=== PATIENT | male | born 1960 | race Caucasian/White ===

== ENCOUNTER 2021-01-25 09:20 | Inpatient (IN) ==
[2021-01-25] MEDS ORDERED: 0.9 % SODIUM CHLORIDE 1,000 ML IV ONE (09:45)
[2021-01-25] MEDS ORDERED: ONDANSETRON 4 MG/2 ML VIAL IV ONE (09:45)
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
[2021-01-25 10:50] LABS: Basophils # (Auto) 0.06 K/mcL (0.00-0.20); Basophils % (Auto) 0.9 % (0.0-2.0); Eosinophils # (Auto) 0.12 K/mcL (0.00-0.70); Eosinophils % (Auto) 1.9 % (0.0-7.0); Hemoglobin 15.7 g/dL (13.5-16.5); Lymphocytes # (Auto) 1.59 K/mcL (1.50-4.80); Lymphocytes % (Auto) 24.8 % (15.0-49.0); Mean Cell Volume 90.7 fL (80.0-100.0); Mean Corpuscular HGB Conc 33.4 g/dL (31.0-36.0); Mean Platelet Volume 10.3 fL (7.4-10.4); Monocytes # (Auto) 0.87 K/mcL (0.10-0.90); Monocytes % (Auto) 13.6 % (1.0-12.0); Neutrophils % (Auto) 58.8 % (38.0-78.0); Platelet Count 310 K/mcL (140-440); RBC 5.18 M/mcL (4.50-5.90); Red Cell Distribution Width 13.1 % (11.5-14.5); WBC 6.4 K/mcL (4.5-11.0)
[2021-01-25 11:13] LABS: ALT/SGPT 55 U/L (<40); AST/SGOT 46 U/L (<40); Albumin 3.5 gm/dL (3.2-5.2); Albumin/Globulin Ratio 1.1 (1.0-2.3); Alkaline Phosphatase 119 U/L (39-117); Bilirubin,Total 0.3 mg/dL (0.1-1.0); Blood Urea Nitrogen 24 mg/dL (6-20); Calcium 9.2 mg/dL (8.6-10.4); Carbon Dioxide 25 mmol/L (22-30); Chloride 98 mmol/L (96-108); Globulin 3.2 gm/dL (2.2-3.7); Glomerular Filtration Rate 60; Glucose 124 mg/dL (70-105)
[2021-01-25 11:41] LABS: Appearance,Urine Clear (Clear); Bilirubin,Urine Negative (Negative); Color,Urine Yellow; Culture Indicated,Urine yes; Glucose,Urine (UA) Negative (Negative); Ketones,Urine Negative (Negative); Leukocyte Esterase,Urine Trace /ug (Negative); Mucus,Urine MOD /hpf; Nitrate,Urine Negative (Negative); PH,Urine 5.5 (5.0-9.0); Specific Gravity,Urine 1.025 (1.000-1.035); Urine Blood Large ery/mcL (Negative); Urine RBC 167 /hpf (0-3); Urine Squamous Epithelial Cell 1 /hpf (0-4); Urine WBC 93 /hpf (0-4); Urobilinogen,Urine Normal
[2021-01-25] MEDS ORDERED: cefTRIAXone 2 GM in DEXTROSE 5% IN WATER 50 ML IV ONE (13:42)
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
[2021-01-25] MEDS ORDERED: ONDANSETRON 4 MG/2 ML VIAL IV PRN (14:32)
[2021-01-25] MEDS ORDERED: cefTRIAXone 1 GM in DEXTROSE 5% IN WATER 50 ML IV SCH (14:45)
--- NOTE | 2021-01-25 14:54 | Cat Scan Report ---
CLINICAL INFORMATION: History of obstructing stone disease. Recent right ureteral stent removal. Increasing right-sided abdominal pain COMPARISON: Noncontrast abdomen and pelvic CT over one week prior 01/17/2021 TECHNIQUE: 0.625 mm helical slices were obtained from the mid heart through the subtrochanteric regions. Following reconstruction, 2.5 mm sagittal, coronal and axial reformatted images were processed and reviewed at bone and soft tissue windows.The exam was performed using radiation dose optimization techniques including, but not limited to, automated exposure control, adjustment of the mA and/or kV according to patient size and use of iterative reconstruction technique. FINDINGS: Lung bases show a 3 mm benign subpulmonic nodule lateral basilar segment of the left lower lobe. There is minor atelectasis in the posterior right lower lobe. No effusion. The visualized heart is normal. Abdominal images show the gallbladder and bile ducts, noncontrasted liver, both adrenal glands, spleen, pancreas and aorta to be normal in size, configuration and attenuation without focal lesion. There is no free air or adenopathy. Since prior CT, the right ureteral stent has been removed. There are three stones in the right ureter: 2.5 mm in the mid ureter at approximately L4. Two adjacent stones, 5 mm and 2 mm, are seen in the distal ureter at S1. No evidence recurrent hydronephrosis; however, a large urinoma throughout the right retroperitoneum and the false and true pelvis has increased in size. On previous examination it was 9.5 x 10 cm. On today's exam is 12 x 11 cm. It is surmised that urine from the right kidney is being diverted throughout through the cold perforation in the right ureter. No evidence of hemorrhage and no supportive evidence of infection. Small amount of gas in the upper right retroperitoneum decreased modestly. This is likely residua from the prior procedure. Nonobstructing stones are seen in the calyces of both kidneys: 3.8 mm superior calyx right kidney, 1 mm inferior calyx right kidney, 2 mm mid calyx left kidney, 4 mm mid calyx left kidney. Pelvic images show urinary bladder, prostate seminal vesicles to be normal. Stomach, small and large bowel are grossly normal. Bone windows show no osseous abnormality. IMPRESSION: Interval removal of right ureteral stent. Since prior exam, three stones have migrated into the right ureter: 2.5 mm in the mid ureter at L4 and two adjacent stones, 5 mm and 2 mm , in the distal ureter at S1. There is no evidence of recurrent hydronephrosis. 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 This has increased in size from the prior CT. Small nonobstructing stones in both kidneys. Interpreted and Authenticated by: Arnaud Whitmore 01/25/21
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
[2021-01-25] MEDS: 0.9 % SODIUM CHLORIDE 10 ML SYRINGE IV SCH (20:06)
[2021-01-25] MEDS: SENNOSIDES 1 TABLET PO SCH (20:08)
[2021-01-25] MEDS: DOCUSATE SODIUM 100 MG CAPSULE PO SCH (20:08)
[2021-01-25] MEDS ORDERED: 0.9 % SODIUM CHLORIDE 10 ML SYRINGE IV SCH (22:00)
[2021-01-25] MEDS: NICOTINE 21 MG PATCH TOPICAL SCH (22:33)
[2021-01-26] MEDS: HYDROmorphone 0.5 MG/0.5 ML SYRINGE IV PRN ×3 (04:17→23:06)
[2021-01-26] MEDS: 0.9 % SODIUM CHLORIDE 10 ML SYRINGE IV SCH ×3 (04:17→20:23)
[2021-01-26] MEDS: NICOTINE 21 MG PATCH TOPICAL SCH (08:14)
[2021-01-26] MEDS: DOCUSATE SODIUM 100 MG CAPSULE PO SCH ×2 (08:14→20:15)
[2021-01-26] MEDS: cefTRIAXone 1 GM VIAL IV SCH (08:14)
[2021-01-26] MEDS ORDERED: ACETAMINOPHEN 325 MG TABLET PO PRN (10:38)
[2021-01-26 14:37] LABS: Basophils # (Auto) 0.05 K/mcL (0.00-0.20); Basophils % (Auto) 0.7 % (0.0-2.0); Eosinophils # (Auto) 0.27 K/mcL (0.00-0.70); Eosinophils % (Auto) 3.5 % (0.0-7.0); Hematocrit 42.9 % (41.0-55.0); Hemoglobin 14.2 g/dL (13.5-16.5); Lymphocytes # (Auto) 2.69 K/mcL (1.50-4.80); Mean Cell Volume 90.5 fL (80.0-100.0); Mean Corpuscular HGB Conc 33.1 g/dL (31.0-36.0); Mean Platelet Volume 10.1 fL (7.4-10.4); Monocytes # (Auto) 0.67 K/mcL (0.10-0.90); Monocytes % (Auto) 8.8 % (1.0-12.0); Neutrophils % (Auto) 51.7 % (38.0-78.0); Platelet Count 326 K/mcL (140-440); RBC 4.74 M/mcL (4.50-5.90); Red Cell Distribution Width 13.3 % (11.5-14.5); WBC 7.6 K/mcL (4.5-11.0)
[2021-01-26 14:56] LABS: ALT/SGPT 50 U/L (<40); AST/SGOT 37 U/L (<40); Albumin 3.1 gm/dL (3.2-5.2); Albumin/Globulin Ratio 1.1 (1.0-2.3); Alkaline Phosphatase 106 U/L (39-117); Bilirubin,Total 0.3 mg/dL (0.1-1.0); Blood Urea Nitrogen 19 mg/dL (6-20); Calcium 8.8 mg/dL (8.6-10.4); Carbon Dioxide 26 mmol/L (22-30); Chloride 101 mmol/L (96-108); Globulin 2.9 gm/dL (2.2-3.7); Glomerular Filtration Rate 66; Glucose 144 mg/dL (70-105)
--- NOTE | 2021-01-26 15:51 | General Surgery Progress Note ---
SUBJECTIVE Subjective Patient information: Note initiated : 01/26/21 at 3:38 pm Service Date, if different from initiated Date: [] Patient: Anshu Castillo 60 y/o M admitted on 01/25/21 for abdominal pain. Chief Complaint: [] Principal diagnosis: Patient is seen for follow-up of his ureteral leak with right-sided urinoma Interval history: This patient is being seen for a follow-up stone surgery with ureteral leak and urinoma in the mid right ureter. Patient's had no new fevers or chills but has persistent right-sided abdominal pain with rebound tenderness and recent labs mild increase of creatinine 1.3 but normalization of his white count and hemoglobin remains normal. Patient now reticent to have new stent placed and has been having stability with recent Thompson catheter placement assuming bladder outlet obstruction component now resolving. Patient has had some diarrhea and C. difficile culture pending as well as urine cultures pending. Patient has had dysuria but not significantly increased nausea and no emesis noted. Constitutional Vitals: Vital Signs Temp Pulse Resp BP Pulse Ox 98.0 F 53 L 20 133/80 95 01/26/21 12:00 01/26/21 12:00 01/26/21 12:00 01/26/21 12:00 01/26/21 12:00 Period Temp Pulse Resp BP Sys/Downing Pulse Ox Last 24 Hr 97.2 F-98.6 F 48-60 15-20 118-134/66-88 93-97 Intake and Output 01/26/21 01/26/21 01/26/21 05:59 13:59 21:59 Intake Total 300 1040 Output Total 900 Balance -600 1040 Weight 175 lb 8 oz Patient Weight 01/27/21 05:59 Weight 175 lb 8 oz Intake & Output: Intake & Output 01/26/21 01/26/21 01/26/21 05:59 13:59 21:59 Intake Total 300 1040 Output Total 900 Balance -600 1040 Weight 175 lb 8 oz Intake: Oral 300 1040 Output: Void Amount 900 Other: Meal Lunch Percent of Meal Consumed 100% Feeding Ability Independent Urine Appearance Clear Clear Uretheral (Thompson) Clear Clear Urine Color Bright Yellow Bright Yellow Uretheral (Thompson) Bright Yellow Bright Yellow Urine Odor Normal Stool Size Small Moderate Stool Color Green Stool Consistency Soft Liquid # Bowel Movements 1 GI/Abdominal GI/Abdominal exam: Present tenderness (Patient has right-sided lower quadrant rebound tenderness to percussion.) Additional findings Additional findings: Patient has no toxic findings presently beyond abdominal tenderness and Thompson catheter in place draining clear urine is noted. Mild CVA tenderness noted right side A/P Assessment and plan (1) Ureter injury: Status: Acute Comment: Thompson catheter Qualifiers: Encounter type: initial encounter Qualified Code(s): S37.10XA - Unspecified injury of ureter, initial encounter (2) Kidney stone on right side: Status: Acute Comment: Removing stent should resolve his pain and lower urinary tract symptoms. He is to follow-up here in about 1 week to discuss the stone analysis. (3) Paraureteric urinoma: Status: Acute Comment: Right-sided Narrative A/P Narrative: After discussion with patient will continue observation and try to manage some of his dysuria symptoms with Pyridium and Flomax Patient understands if not improved will require either urinoma drainage/right- sided nephrostomy tube placement or repeat ureteroscopy and potential stent replacement to the neck down the plan is as started stated dysuria.a second time cardiac catheter cystic Plan: Would initiate Flomax therapy along with Pyridium 3 times daily 200 mg for symptomatic relief We will recheck labs in the morning and continue hydration at present. Strong consideration for intervention with ureteroscopy tomorrow if not improved and potential reimaging pending clinical status Would keep n.p.o. overnight and await results from the C. difficile cultures which are pending as well as urine cultures pending, can address that then Time Spent With Patient Time: Total time spent is greater than 50% in coordination of care (as documented) at patient's floor/unit and/or counseling patient:
[2021-01-26] MEDS: PHENAZOPYRIDINE 200 MG TABLET PO PRN ×2 (16:34→23:09)
[2021-01-26 19:48] LABS: Lymphocytes % (Auto) 35.3 % (15.0-49.0)
[2021-01-26] MEDS: SENNOSIDES 1 TABLET PO SCH (20:15)
[2021-01-26] MEDS: TAMSULOSIN 0.4 MG CAPSULE PO SCH (20:23)
[2021-01-27] MEDS: 0.9 % SODIUM CHLORIDE 10 ML SYRINGE IV SCH ×3 (06:15→21:05)
[2021-01-27 07:13] LABS: Basophils # (Auto) 0.06 K/mcL (0.00-0.20); Basophils % (Auto) 0.6 % (0.0-2.0); Eosinophils # (Auto) 0.42 K/mcL (0.00-0.70); Eosinophils % (Auto) 4.2 % (0.0-7.0); Hematocrit 44.3 % (41.0-55.0); Hemoglobin 14.5 g/dL (13.5-16.5); Lymphocytes # (Auto) 3.61 K/mcL (1.50-4.80); Mean Cell Volume 91.2 fL (80.0-100.0); Mean Corpuscular HGB Conc 32.7 g/dL (31.0-36.0); Mean Platelet Volume 10.2 fL (7.4-10.4); Monocytes # (Auto) 0.64 K/mcL (0.10-0.90); Monocytes % (Auto) 6.4 % (1.0-12.0); Neutrophils % (Auto) 52.8 % (38.0-78.0); Platelet Count 350 K/mcL (140-440); RBC 4.86 M/mcL (4.50-5.90); Red Cell Distribution Width 13.2 % (11.5-14.5)
[2021-01-27 07:48] LABS: ALT/SGPT 46 U/L (<40); AST/SGOT 30 U/L (<40); Albumin 3.3 gm/dL (3.2-5.2); Albumin/Globulin Ratio 1.1 (1.0-2.3); Alkaline Phosphatase 108 U/L (39-117); Bilirubin,Total 0.4 mg/dL (0.1-1.0); Blood Urea Nitrogen 17 mg/dL (6-20); Carbon Dioxide 22 mmol/L (22-30); Chloride 104 mmol/L (96-108); Glomerular Filtration Rate 82; Glucose 104 mg/dL (70-105)
--- NOTE | 2021-01-27 07:59 | General Surgery Progress Note ---
SUBJECTIVE Subjective Patient information: Note initiated : 01/27/21 at 7:51 am Service Date, if different from initiated Date: [] Patient: Anshu Castillo 60 y/o M admitted on 01/25/21 for abdominal pain. Chief Complaint: [] Principal diagnosis: Patient is seen for follow-up of his ureteral leak with right-sided urinoma Interval history: Patient today with less nausea and urine remains clear. Patient's had no fever chills and results of labs reviewed which demonstrated stability with exception of mild increase in WBCs on CBC. Patient has been up in the halls without significant discomfort overnight and has remained n.p.o. Constitutional Vitals: Vital Signs Temp Pulse Resp BP Pulse Ox 97.8 F 87 18 117/71 91 01/27/21 07:08 01/27/21 07:08 01/27/21 07:08 01/27/21 07:08 01/27/21 07:08 Period Temp Pulse Resp BP Sys/Downing Pulse Ox Last 24 Hr 97.8 F-98.9 F 48-87 14-20 112-142/67-80 91-95 Intake and Output 01/26/21 01/27/21 01/27/21 21:59 05:59 13:59 Intake Total 960 400 Output Total 800 825 Balance 160 -425 Weight 170 lb 4.8 oz Intake & Output: Intake & Output 01/26/21 01/27/21 01/27/21 21:59 05:59 13:59 Intake Total 960 400 Output Total 800 825 Balance 160 -425 Weight 170 lb 4.8 oz Intake: Oral 960 400 Output: Urine Catheter Amount 800 825 Other: Meal Dinner Percent of Meal Consumed 100% Feeding Ability Independent Urine Appearance Sediment Clear Uretheral (Thompson) Clear Urine Color Dark Yellow [place] Blood Tinged Uretheral (Thompson) [place] Urine Odor Strong Additional findings Additional findings: Patient has had demonstration of no acute distress is alert oriented and cooperative. Patient has no fever chills and vital signs remained stable Back exam demonstrates minimal CVA tenderness and abdominal exam shows no rebound and significantly less tenderness to percussion in the right lower quadrant. Urine remains clear but concentrated. Thompson catheter remains in place with adequate drainage on HUNTER. A/P Narrative A/P Narrative: Assessment and plan: Improvement in status with likely better spontaneous drainage from suspected ureteral leak. Patient demonstrates clinical improvement and at this point will reinitiate fluid intake and hold on further imaging at this time. With patient's labs were repeated in the morning and plan on conservative approach is able Patient is agreeable and understands plan remaining reticent to surgical approach which would be appropriate Time Spent With Patient Time: Total time spent is greater than 50% in coordination of care (as documented) at patient's floor/unit and/or counseling patient:
[2021-01-27] MEDS: DOCUSATE SODIUM 100 MG CAPSULE PO SCH ×2 (09:16→21:06)
[2021-01-27] MEDS: PHENAZOPYRIDINE 200 MG TABLET PO SCH ×2 (09:16→14:38)
[2021-01-27] MEDS: NICOTINE 21 MG PATCH TOPICAL SCH (09:16)
[2021-01-27] MEDS: cefTRIAXone 1 GM VIAL IV SCH (09:45)
[2021-01-27] MEDS: HYDROmorphone 0.5 MG/0.5 ML SYRINGE IV PRN (14:45)
[2021-01-27] MEDS: TOLTERODINE 2 MG CAP.XL.24H PO SCH (16:44)
--- NOTE | 2021-01-27 16:47 | General Surgery Progress Note ---
SUBJECTIVE Subjective Patient information: Note initiated : 01/27/21 at 4:42 pm Service Date, if different from initiated Date: [] Patient: Anshu Castillo 60 y/o M admitted on 01/25/21 for abdominal pain. Chief Complaint: [] Principal diagnosis: Patient is seen for follow-up of his ureteral leak with right-sided urinoma Interval history: Some urine leakage and overall otherwise improved abd pains Constitutional Vitals: Vital Signs Temp Pulse Resp BP Pulse Ox 97.8 F 55 L 18 127/81 92 01/27/21 12:00 01/27/21 12:00 01/27/21 12:00 01/27/21 12:00 01/27/21 12:00 Period Temp Pulse Resp BP Sys/[place] Pulse Ox Last 24 Hr 97.8 F-98.9 F 50-87 14-18 112-142/67-81 91-93 Intake and Output 01/27/21 01/27/21 01/27/21 05:59 13:59 21:59 Intake Total 400 480 Output Total 825 Balance -425 480 Intake & Output: Intake & Output 01/27/21 01/27/21 01/27/21 05:59 13:59 21:59 Intake Total 400 480 Output Total 825 Balance -425 480 Intake: Oral 400 480 Output: Urine Catheter Amount 825 Other: Meal Lunch Percent of Meal Consumed 100% Feeding Ability Independent Urine Appearance Clear Clear Uretheral (Thompson) Clear Clear Urine Color [place] Uretheral (Thompson) [place] Urine Odor Normal Uretheral (Thompson) Normal Stool Size Moderate Stool Color Brown Stool Consistency Soft Soft Loose # Bowel Movements 1 1 Additional findings Additional findings: Abd softer and no CVA tenderness nontoxic and tolerating PO full liqiuds A/P Narrative A/P Narrative: doing well and will try alternative meds for bladder spasms plan increase diet tonight and perhaps discharge in am pending labs and clinical status Time Spent With Patient Time: Total time spent is greater than 50% in coordination of care (as documented) at patient's floor/unit and/or counseling patient:
[2021-01-27] MEDS: TAMSULOSIN 0.4 MG CAPSULE PO SCH (21:04)
[2021-01-27] MEDS: SENNOSIDES 1 TABLET PO SCH (21:06)
[2021-01-28 07:34] LABS: Basophils # (Auto) 0.06 K/mcL (0.00-0.20); Basophils % (Auto) 0.5 % (0.0-2.0); Eosinophils # (Auto) 0.44 K/mcL (0.00-0.70); Eosinophils % (Auto) 3.8 % (0.0-7.0); Hematocrit 44.4 % (41.0-55.0); Hemoglobin 14.5 g/dL (13.5-16.5); Lymphocytes # (Auto) 3.15 K/mcL (1.50-4.80); Lymphocytes % (Auto) 27.6 % (15.0-49.0); Mean Cell Volume 91.2 fL (80.0-100.0); Mean Corpuscular HGB Conc 32.7 g/dL (31.0-36.0); Mean Platelet Volume 10.2 fL (7.4-10.4); Monocytes # (Auto) 0.67 K/mcL (0.10-0.90); Monocytes % (Auto) 5.9 % (1.0-12.0); Neutrophils % (Auto) 62.2 % (38.0-78.0); Platelet Count 398 K/mcL (140-440); RBC 4.87 M/mcL (4.50-5.90); Red Cell Distribution Width 13.1 % (11.5-14.5); WBC 11.4 K/mcL (4.5-11.0)
--- NOTE | 2021-01-28 07:58 | General Surgery Progress Note ---
SUBJECTIVE Subjective Patient information: Note initiated : 01/28/21 at 7:50 am Service Date, if different from initiated Date: [] Patient: Anshu Castillo 60 y/o M admitted on 01/25/21 for abdominal pain. Chief Complaint: [] Principal diagnosis: Patient is seen for follow-up of his ureteral leak with right-sided urinoma Interval history: AFVSS still some abd pain but not wosened ambulating well and po OK bladder spasms improved Constitutional Vitals: Vital Signs Temp Pulse Resp BP Pulse Ox 98.3 F 53 L 22 117/70 94 01/28/21 04:21 01/28/21 04:21 01/28/21 04:21 01/28/21 04:21 01/28/21 04:21 Period Temp Pulse Resp BP Sys/Downing Pulse Ox Last 24 Hr 97.5 F-98.3 F 52-55 18-24 111-127/70-81 92-95 Intake and Output 01/27/21 01/28/21 01/28/21 21:59 05:59 13:59 Intake Total 1200 700 Output Total 800 850 Balance 400 -150 Weight 170 lb Intake & Output: Intake & Output 01/27/21 01/28/21 01/28/21 21:59 05:59 13:59 Intake Total 1200 700 Output Total 800 850 Balance 400 -150 Weight 170 lb Intake: Oral 1200 700 Output: Urine Catheter Amount 800 850 Other: Meal Dinner Percent of Meal Consumed 100% Feeding Ability Independent Urine Appearance Clear Uretheral ([place]) Clear Urine Color [place] Uretheral ([place]) [place] Stool Color Brown Black Stool Consistency Soft # Bowel Movements 1 Additional findings Additional findings: Nontoxic but still with discomfort noted abd tenderness in RLQ but short of rebound minimal CVA tenderness [place] clear yellow A/P Narrative A/P Narrative: A: PERSISTENT URINOMA P:With rising WBC and Chemistry pending would repeat CT to assess status and need to intervene with stenting to relieve in spite of reluctance for sane by patient. Will see for further eval after above Time Spent With Patient Time: Total time spent is greater than 50% in coordination of care (as documented) at patient's floor/unit and/or counseling patient:
[2021-01-28 08:01] LABS: ALT/SGPT 41 U/L (<40); AST/SGOT 25 U/L (<40); Albumin 3.1 gm/dL (3.2-5.2); Alkaline Phosphatase 110 U/L (39-117); Bilirubin,Total 0.3 mg/dL (0.1-1.0); Blood Urea Nitrogen 18 mg/dL (6-20); Calcium 9.1 mg/dL (8.6-10.4); Carbon Dioxide 25 mmol/L (22-30); Chloride 101 mmol/L (96-108); Glomerular Filtration Rate 60; Glucose 156 mg/dL (70-105)
--- NOTE | 2021-01-28 08:44 | Cat Scan Report ---
History: Abdominal pain, rising white blood cell count, urinoma around the right kidney following recent attempted ureteral stone extraction Technique: the patient was imaged without contrast from the diaphragm to the symphysis pubis. Sagittal and coronal reformats were created. The radiation exposure was limited using dose reduction technology. FINDINGS: There is discoid atelectasis in the posterior basal segments of both lower lobes, right greater than left. This has increased since prior CT done on 01/25/21. The liver and spleen are normal in size and homogeneous. The gallbladder and bile ducts appear normal. There is no apparent mass or inflammation the pancreas. The adrenals are normal and symmetric. Patient has a couple nonobstructing calyceal stones in both kidneys. Largest is located in the middle third of the left kidney and measures 3.5 mm. There is no hydronephrosis or abnormal fluid collection in the left kidney. There is mild fullness of the right renal pelvis. In the proximal and middle third of the right ureter there are two residual stones. The larger is in the middle one third and measures 4 mm. These were seen on the prior exams and have not moved. There is a large retroperitoneal fluid collection which extends from the lower medial aspect of the right kidney, tracking anterior to the right psoas and iliacus muscle to the right internal inguinal ring. It contains bubbles of air in the superior aspect. There were air bubbles on the prior exam, which have partially reabsorbed. The fluid collection measures 4.7 x 10.7 x 16 cm. It has increased in size since 01/25/21. At that time it measured 11 x 12 cm in greatest dimension. No ascites or free intraperitoneal air are present. The urinary bladder is partially decompressed by Thompson catheter. Bowel pattern is normal without evidence of ileus or obstruction. There is a row of anastomotic sutures around the cecum and ascending colon. Moderate amount stool is present in the right side of the colon. IMPRESSION: Enlarging fluid collection anterior to the right iliopsoas muscle. This is probably a urinoma. Superimposed infection may be present. Retained stones in the right ureter causing low-grade obstruction Interpreted and Authenticated by: Bishnu Gonzalez 01/28/21
[2021-01-28] MEDS: NICOTINE 21 MG PATCH TOPICAL SCH (09:11)
[2021-01-28] MEDS: DOCUSATE SODIUM 100 MG CAPSULE PO SCH ×2 (09:11→20:39)
[2021-01-28] MEDS: cefTRIAXone 1 GM VIAL IV SCH (09:11)
[2021-01-28] MEDS: TOLTERODINE 2 MG CAP.XL.24H PO SCH (09:12)
[2021-01-28] MEDS: 0.9 % SODIUM CHLORIDE 10 ML SYRINGE IV SCH ×3 (09:12→20:38)
[2021-01-28] MEDS ORDERED: ceFAZolin 1 GM VIAL IV ONE (13:01)
--- NOTE | 2021-01-28 13:14 | General Surgery Progress Note ---
SUBJECTIVE Subjective Patient information: Note initiated : 01/28/21 at 1:09 pm Service Date, if different from initiated Date: [] Patient: Anshu Castillo 60 y/o M admitted on 01/25/21 for abdominal pain. Chief Complaint: [] Principal diagnosis: Patient is seen for follow-up of his ureteral leak with right-sided urinoma Interval history: Patient has persistent pain and review of her CT scan shows expanded urinoma with likely ureteral obstruction secondary to more distal stone. Decision now has to further options readdressed with patient and he is agreeable to proceed with ureteroscopy as opposed to nephrostomy tube placement and/or open procedure. Tenderness Constitutional Vitals: Vital Signs Temp Pulse Resp BP Pulse Ox 98.3 F 55 L 22 123/72 92 01/28/21 08:00 01/28/21 08:00 01/28/21 08:00 01/28/21 08:00 01/28/21 08:00 Period Temp Pulse Resp BP Sys/Downing Pulse Ox Last 24 Hr 97.5 F-98.3 F 52-55 18-24 111-127/70-80 92-95 Intake and Output 01/27/21 01/28/21 01/28/21 21:59 05:59 13:59 Intake Total 0227 063 7361 Output Total 800 850 Balance 400 -150 1160 Weight 170 lb Intake & Output: Intake & Output 01/27/21 01/28/21 01/28/21 21:59 05:59 13:59 Intake Total 5235 055 5653 Output Total 800 850 Balance 400 -150 1160 Weight 170 lb Intake: Oral 2768 875 7372 Output: Urine Catheter Amount 800 850 Other: Meal Dinner Lunch Percent of Meal Consumed 100% 100% Feeding Ability Independent Independent Urine Appearance Clear Uretheral (Thompson) Clear Clear Urine Color [place] Uretheral (Thompson) [place] Stool Color Brown Black Stool Consistency Soft # Bowel Movements 1 Additional findings Additional findings: Patient still has abdominal tenderness and no distinct rebound but no improvement as well Still mild right CVA tenderness A/P Narrative A/P Narrative: Discussed options and at this point has patient has just had significant solid food for lunch will plan to proceed early tomorrow morning after n.p.o. status to reduce anesthesia risk as he has had problems previously with questionable aspiration with other procedure. Risks and benefits explained and patient understands need for stent placement and possibility if unsuccessful of nephrostomy tube placement and/or drainage or open procedure. Consent will be signed and we will proceed in tree wrapper tomorrow. Time Spent With Patient Time: Total time spent is greater than 50% in coordination of care (as documented) at patient's floor/unit and/or counseling patient:
[2021-01-28] MEDS ORDERED: ceFAZolin 2 GM in DEXTROSE 5% IN WATER 50 ML IV SCH (13:15)
[2021-01-28] MEDS: SENNOSIDES 1 TABLET PO SCH (20:38)
[2021-01-28] MEDS: TAMSULOSIN 0.4 MG CAPSULE PO SCH (20:38)
[2021-01-28] MEDS: HYDROmorphone 0.5 MG/0.5 ML SYRINGE IV PRN (20:55)
[2021-01-28] MEDS: PHENAZOPYRIDINE 200 MG TABLET PO PRN (20:55)
[2021-01-29] MEDS ORDERED: ceFAZolin 2 GM in DEXTROSE 5% IN WATER 50 ML IV SCH (06:00)
[2021-01-29] MEDS: 0.9 % SODIUM CHLORIDE 10 ML SYRINGE IV SCH ×2 (06:28→12:37)
[2021-01-29 07:10] LABS: Basophils # (Auto) 0.06 K/mcL (0.00-0.20); Basophils % (Auto) 0.6 % (0.0-2.0); Eosinophils % (Auto) 4.7 % (0.0-7.0); Hemoglobin 14.6 g/dL (13.5-16.5); Lymphocytes # (Auto) 3.31 K/mcL (1.50-4.80); Lymphocytes % (Auto) 30.8 % (15.0-49.0); Mean Cell Volume 90.5 fL (80.0-100.0); Mean Corpuscular HGB Conc 33.2 g/dL (31.0-36.0); Mean Platelet Volume 9.9 fL (7.4-10.4); Monocytes # (Auto) 0.64 K/mcL (0.10-0.90); Neutrophils % (Auto) 57.9 % (38.0-78.0); Platelet Count 450 K/mcL (140-440); RBC 4.86 M/mcL (4.50-5.90); WBC 10.8 K/mcL (4.5-11.0)
[2021-01-29 08:13] LABS: ALT/SGPT 33 U/L (<40); AST/SGOT 19 U/L (<40); Albumin 3.4 gm/dL (3.2-5.2); Albumin/Globulin Ratio 1.2 (1.0-2.3); Alkaline Phosphatase 102 U/L (39-117); Bilirubin,Total 0.6 mg/dL (0.1-1.0); Blood Urea Nitrogen 16 mg/dL (6-20); Calcium 9.4 mg/dL (8.6-10.4); Carbon Dioxide 27 mmol/L (22-30); Chloride 103 mmol/L (96-108); Globulin 2.9 gm/dL (2.2-3.7); Glomerular Filtration Rate 66; Glucose 105 mg/dL (70-105)
[2021-01-29] MEDS: TOLTERODINE 2 MG CAP.XL.24H PO SCH (08:42)
[2021-01-29] MEDS: DOCUSATE SODIUM 100 MG CAPSULE PO SCH (08:42)
[2021-01-29] MEDS: cefTRIAXone 1 GM VIAL IV SCH (08:42)
[2021-01-29] MEDS: NICOTINE 21 MG PATCH TOPICAL SCH (08:43)
[2021-01-29] MEDS ORDERED: IPRATROPIUM/ALBUTEROL 3 ML AMPUL.NEB NEB ONE ×2 (09:09→09:16)
[2021-01-29] MEDS ORDERED: LIDOCAINE HCL/PF 100 MG/5 ML SYRINGE IV ONE (09:25)
[2021-01-29] MEDS ORDERED: PROPOFOL 200 MG/20 ML VIAL IV ONE (09:25)
[2021-01-29] MEDS ORDERED: ONDANSETRON 4 MG/2 ML VIAL ONE (09:25)
[2021-01-29] MEDS ORDERED: MIDAZOLAM 5 MG/5 ML VIAL ONE (09:25)
[2021-01-29] MEDS ORDERED: GLYCOPYRROLATE 0.2 MG/ML VIAL IV ONE (09:25)
[2021-01-29] MEDS ORDERED: fentaNYL 100 MCG/2 ML VIAL IV ONE (09:25)
[2021-01-29] MEDS ORDERED: DEXAMETHASONE 10 MG/ML VIAL ONE (09:25)
[2021-01-29] MEDS ORDERED: KETAMINE 100 MG/ML ML ONE (09:25)
[2021-01-29] MEDS ORDERED: METOPROLOL TARTRATE 5 MG/5 ML VIAL IV PRN (09:51)
[2021-01-29] MEDS ORDERED: MEPERIDINE 25 MG/ML VIAL IV PRN (09:51)
[2021-01-29] MEDS ORDERED: ATROPINE SULFATE 0.4 MG/ML VIAL IV PRN (09:51)
[2021-01-29] MEDS ORDERED: ONDANSETRON 4 MG/2 ML VIAL IV PRN (09:51)
[2021-01-29] MEDS ORDERED: PROMETHAZINE 25 MG/ML VIAL IV PRN (09:51)
[2021-01-29] MEDS ORDERED: ePHEDrine 50 MG/ML AMPUL IV PRN (09:51)
[2021-01-29] MEDS ORDERED: IPRATROPIUM/ALBUTEROL 3 ML AMPUL.NEB NEB PRN (09:51)
[2021-01-29] MEDS ORDERED: diphenhydrAMINE 50 MG/ML VIAL IV PRN (09:51)
[2021-01-29] MEDS ORDERED: METHOCARBAMOL 1,000 MG/10 ML VIAL IV PRN (09:51)
[2021-01-29] MEDS ORDERED: fentaNYL 100 MCG/2 ML VIAL IV PRN (09:51)
[2021-01-29] MEDS ORDERED: NALOXONE HCL 0.4 MG/ML VIAL IV PRN (09:51)
[2021-01-29] MEDS ORDERED: FLUMAZENIL 0.1 MG/ML ML IV PRN (09:51)
[2021-01-29] MEDS ORDERED: LACTATED RINGERS 1,000 ML IV SCH (10:00)
[2021-01-29] MEDS ORDERED: IOVERSOL 20 ML VIAL IV ONE (10:04)
--- NOTE | 2021-01-29 10:33 | Operative Note ---
Operative Note Operative Note: Operation report Preop diagnosis: right urinoma with left ureteral leak status post prior stone surgery postop diagnosis: Same-no easily visualized ureteral fragment Operation performed: Cystoscopy retrograde pyelography with ureteral stent placement right side Surgeon: Dr. Luis Angel Johnson Anesthesia: BETH Leal Anesthesia type: General Drains 18 Portuguese Thompson catheter and 6 x 26 double-J stent ureteral right side Findings: Right ureteral disruption with significant ureteral leak mid ureter likely consistent with past stone surgery and bypassed with ureteral stenting. Description: Patient placed on the operating table and general anesthesia induced. Patient had prepped and draped in the dorsal 5 position and cystoscopy was carried out demonstrating some mild proximal enlargement and ureteral edema right side without other significant beyond mild trabeculation. Patient had right ureter cannulated with 035 zip wire and recent manipulation under fluoroscopic control wire was coiled in the right renal pelvis. Patient had a 5 Portuguese open-ended stent utilized for performing right retrograde pyelogram. Patient had the significant leak noted in the mid ureter with significant periureteral edema and urinoma present with no actual stone fragment visualized. At this point he decided with significant edema and disruption to focal ureteroscopy and place straight drain with 6 Portuguese double-J stent over the wire. Stent was placed with position confirmed fluoroscopically and cystoscopically an 18 Portuguese Thompson catheter was placed draining clear urine. Patient was returned to the recovery area stable patient tolerated procedure well.
[2021-01-29] MEDS: HYDROmorphone 0.5 MG/0.5 ML SYRINGE IV PRN (11:34)
[2021-01-29] MEDS: PHENAZOPYRIDINE 200 MG TABLET PO PRN (12:11)
--- NOTE | 2021-01-29 12:55 | XRay Report ---
HISTORY: FINDINGS: IMPRESSION: An 1.4 minutes of fluoroscopy time was used. Interpreted and Authenticated by: Bishnu Gonzalez 01/29/21
--- NOTE | 2021-01-29 14:02 | Discharge Summary ---
Discharge Provider Provider Patient information: Note initiated : 01/29/21 at 1:55 pm Service Date, if different from initiated Date: [] Patient: Anshu Castillo 60 y/o M admitted on 01/25/21 for abdominal pain. Chief Complaint: [] Date of admission: 01/25/21 15:50 Discharge date: 01/29/21 Primary care physician: PCP No Admitting clinician: Scott Melton Consults: 01/25/21 Consult to Physician [CONS] Stat Comment: Consulting Provider: Scott Melton Reason For Exam: Physician to Consult Consult to Physician [CONS] Stat Comment: Consulting Provider: Anshu Bill Reason For Exam: Physician to Consult Discharging clinician: Devon Johnson COURSE Hospital Course Hospital course: Patient was admitted for abdominal pain and found to have right ureteral disruption with urinoma on CT imaging. Patient had declined initial stent placement and conservative management attempted however patient had persistent pain and subsequently showed a large urinoma which required intervention surgically. Patient had a right attempted ureteroscopy and subsequently had inability to perform ureteroscopy visually and a retrograde pyelogram with stent placement was accomplished with Thompson catheter left in place. Discharge diagnosis: Right ureteral stone with right ureteral disruption and urinoma with stent Procedures: Right attempted ureteroscopy right retrograde pyelography and right ureteral stent placement 29 January 2021 Time Spent with Patient Time attestation: Total time spent providing and/or coordinating discharge services: Physical Examination Vital Signs Vital signs: Temp Pulse Resp BP Pulse Ox 98.2 F 67 15 118/69 95 01/29/21 10:39 01/29/21 10:39 01/29/21 10:39 01/29/21 10:39 01/29/21 10:39 Additional Findings Additional exam: Patient was nontoxic on discharge and eating well with less abdominal pain and less CVA tenderness. Patient had normal diaphragmatic excursion had regular cardiac rhythm. HEENT within normal limits Thompson catheter in place draining clear yellow urine Discharge Plan Patient/Caregiver Discharge Instructions Activity: resume usual activities as tolerated Diet: Regular Diet Activity Restrictions/Additional Instructions: Patient to continue with Thompson catheter with day and night bag usage. 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 is have the Flomax numbness which this so that Prescriptions: New sulfamethoxazole-trimethoprim [Bactrim DS] 800-160 mg tablet 1 tab PO BID Qty: 20 RF: 0 Continued tamsulosin [Flomax] 0.4 mg capsule 0.4 mg PO QDAY Qty: 14 RF: 0 oxycodone-acetaminophen [Endocet] 10-325 mg tablet 1 tab PO Q6H PRN (Reason: pain) Qty: 14 RF: 0 Discontinued ciprofloxacin HCl [Cipro] 500 mg tablet 500 mg PO BID Qty: 10 RF: 0 Follow Up Plan Follow up with: No,PCP [Primary Care Provider] - Patient Disposition: Home, Self-Care Prognosis: Good Discharge Orders: Discharge Order (Routine); Ordered 01/29/21 Ordered By: Devon Johnson Pending Pending Pending: Resuscitation Status Full Code Diet Regular Diet Start TueJan 29 1241 Acetaminophen (Acetaminophen 325 Mg Tablet) 650 mg PO Q4-6HP PRN; Protocol PRN Reason: Per Pain Protocol Last Admin: 01/29/21 04:42 Dose: 650 mg Documented by: ISIDORO Ceftriaxone Sodium (Ceftriaxone 1 Gm Vial) 1 gm IV Q24H [facility] Last Admin: 01/29/21 08:42 Dose: Not Given Documented by: Admin: 01/28/21 09:11 Dose: 1 gm Documented by: Admin: 01/27/21 09:45 Dose: 1 gm Documented by: Admin: 01/26/21 08:14 Dose: 1 gm Documented by: JERRY Docusate Sodium (Docusate Sodium 100 Mg Capsule) 100 mg PO BID [facility] Last Admin: 01/29/21 08:42 Dose: Not Given Documented by: Admin: 01/28/21 20:39 Dose: Not Given Documented by: Admin: 01/28/21 09:11 Dose: 100 mg Documented by: Admin: 01/27/21 21:06 Dose: Not Given Documented by: Admin: 01/27/21 09:16 Dose: Not Given Documented by: Admin: 01/26/21 20:15 Dose: Not Given Documented by: Admin: 01/26/21 08:14 Dose: Not Given Documented by: Admin: 01/25/21 20:08 Dose: Not Given Documented by: MSHULTS Hydromorphone HCl (Hydromorphone 0.5 Mg/0.5 Ml Syringe) 0.25 mg IV Q2HP PRN; Protocol PRN Reason: Per Pain Protocol Last Admin: 01/29/21 11:34 Dose: 0.25 mg Documented by: Admin: 01/28/21 20:55 Dose: 0.25 mg Documented by: Admin: 01/27/21 14:45 Dose: 0.25 mg Documented by: Admin: 01/26/21 23:06 Dose: 0.25 mg Documented by: Admin: 01/26/21 12:59 Dose: 0.25 mg Documented by: Admin: 01/26/21 04:17 Dose: 0.25 mg Documented by: CAROLYNE Cefazolin Sodium 2 gm/ (Dextrose) 50 mls @ 100 mls/hr IV PREOP HOLLY Stop: 01/29/21 17:00 Last Infusion: 01/29/21 09:30 Dose: 0 mls/hr Documented by: Admin: 01/29/21 09:19 Dose: 100 mls/hr Documented by: [email or web address] Nicotine (Nicotine 21 Mg Patch) 21 mg TOPICAL DAILY@1000 HOLLY Last Admin: 01/29/21 08:43 Dose: Not Given Documented by: Admin: 01/28/21 09:11 Dose: 21 mg Documented by: Admin: 01/27/21 09:16 Dose: 21 mg Documented by: Admin: 01/26/21 08:14 Dose: 21 mg Documented by: Admin: 01/25/21 22:33 Dose: 21 mg Documented by: CAROLYNE Phenazopyridine HCl (Phenazopyridine 200 Mg Tablet) 200 mg PO TIDP PRN PRN Reason: BLADDER SPASMS Last Admin: 01/29/21 12:11 Dose: 200 mg Documented by: Admin: 01/28/21 20:55 Dose: 200 mg Documented by: ISIDORO Senna (Sennosides 1 Tablet) 2 tab PO HS [facility] Last Admin: 01/28/21 20:38 Dose: Not Given Documented by: Admin: 01/27/21 21:06 Dose: Not Given Documented by: Admin: 01/26/21 20:15 Dose: Not Given Documented by: Admin: 01/25/21 20:08 Dose: Not Given Documented by: CAROLYNE Sodium Chloride (0.9 % Sodium Chloride 10 Ml Syringe) 10 ml IV Q8 [facility] Admin: 01/29/21 12:37 Dose: Not Given Documented by: Admin: 01/29/21 06:28 Dose: Not Given Documented by: Admin: 01/28/21 20:38 Dose: 10 ml Documented by: Admin: 01/28/21 17:57 Dose: 10 ml Documented by: Admin: 01/28/21 09:12 Dose: 10 ml Documented by: Admin: 01/27/21 21:05 Dose: 10 ml Documented by: Admin: 01/27/21 14:38 Dose: 10 ml Documented by: Admin: 01/27/21 06:15 Dose: 10 ml Documented by: Admin: 01/26/21 20:23 Dose: 10 ml Documented by: Admin: 01/26/21 12:59 Dose: 10 ml Documented by: Admin: 01/26/21 04:17 Dose: 10 ml Documented by: Admin: 01/25/21 20:06 Dose: 10 ml Documented by: CAROLYNE Tamsulosin HCl (Tamsulosin 0.4 Mg Capsule) 0.4 mg PO [facility] Last Admin: 01/28/21 20:38 Dose: 0.4 mg Documented by: Admin: 01/27/21 21:04 Dose: 0.4 mg Documented by: Admin: 01/26/21 20:23 Dose: 0.4 mg Documented by: SABRA Tolterodine Tartrate (Tolterodine 2 Mg Cap.Xl.24h) 4 mg PO DAILY [facility] Last Admin: 01/29/21 08:42 Dose: Not Given Documented by: Admin: 01/28/21 09:12 Dose: 4 mg Documented by: Admin: 01/27/21 16:44 Dose: 4 mg Documented by: JERRY Shift Summary 01/29/21 04:51 Shift Summary by Herminia Piper Pt had stent placement, then removal earlier this month, then had increased pain & was admitted for urinoma. Thompson was placed to see if it would heal on its own, but CT yesterday showed worsening so he will have surgery today for stent placement. Pt is A&O x4. Up ad adán in halls, uses personal cane. Thompson putting out large amounts of clear, pyridium orange urine. Had PRN pain meds once early in the shift. Hoping to go home later today after stent placement or tomorrow. Initialized on 01/29/21 04:51 - END OF NOTE
== END 2021-01-29 17:15 | disposition home or self-care (01) | DRG 661 ==
LOC: ED 09:20 → MEDSUR 15:50
PROVIDERS: ADMIT Urology; ATTEND Urology

== ENCOUNTER 2021-05-28 14:07 | Inpatient (IN) ==
[2021-05-28] MEDS ORDERED: ACETAMINOPHEN 325 MG TABLET PO ONE (14:27)
[2021-05-28] MEDS ORDERED: 0.9 % SODIUM CHLORIDE 1,000 ML IV ONE (14:27)
--- NOTE | 2021-05-28 14:50 | XRay Report ---
CLINICAL INFORMATION: fever COMPARISON: 12/29/2016 FINDINGS: Heart size, mediastinum and pulmonary vessels are normal. Lungs are clear. No effusions. IMPRESSION: Normal Interpreted and Authenticated by: Arnaud Whitmore 05/28/21
[2021-05-28 14:55] LABS: POC Blood Urea Nitrogen 22 mg/dL (6-20); POC CO2 18 mmol/L (22-30); POC Calcium, Ionized 1.08 mmEq/L (1.16-1.32); POC Chloride 100 mEq/L (96-108); POC Creatinine 1.3 mg/dL (0.6-1.2); POC Glucose, Random 195 mg/dL (70-105); POC Hematocrit 42 % (41-55); POC Potassium 3.5 mEql/L (3.3-5.1); POC Sodium 132 mEq/L (133-145)
[2021-05-28 15:27] LABS: Basophils # (Auto) 0.06 K/mcL (0.00-0.20); Basophils % (Auto) 0.2 % (0.0-2.0); Eosinophils # (Auto) 0 K/mcL (0.00-0.70); Eosinophils % (Auto) 0 % (0.0-7.0); Hematocrit 40.4 % (41.0-55.0); Lymphocytes # (Auto) 1.25 K/mcL (1.50-4.80); Lymphocytes % (Auto) 4.9 % (15.0-49.0); Mean Cell Volume 86.9 fL (80.0-100.0); Mean Corpuscular HGB Conc 34.7 g/dL (31.0-36.0); Mean Platelet Volume 10.5 fL (7.4-10.4); Monocytes # (Auto) 1.75 K/mcL (0.10-0.90); Monocytes % (Auto) 6.9 % (1.0-12.0); Platelet Count 225 K/mcL (140-440); RBC 4.65 M/mcL (4.50-5.90); Red Cell Distribution Width 14.1 % (11.5-14.5); WBC 25.5 K/mcL (4.5-11.0)
[2021-05-28] MEDS ORDERED: CEFEPIME 1 GM VIAL IV ONE (15:30)
[2021-05-28] MEDS ORDERED: VANCOMYCIN PER PHARMACY IV ONE ×2 (15:30→21:36)
[2021-05-28] MEDS ORDERED: VANCOMYCIN 1,500 MG in 0.9 % SODIUM CHLORIDE 500 ML IV ONE (15:45)
[2021-05-28 15:48] LABS: ALT/SGPT 12 U/L (<40); AST/SGOT 13 U/L (<40); Albumin 3.4 gm/dL (3.2-5.2); Albumin/Globulin Ratio 1.2 (1.0-2.3); Alkaline Phosphatase 74 U/L (39-117); Bilirubin,Total 1.3 mg/dL (0.1-1.0); Blood Urea Nitrogen 20 mg/dL (6-20); Calcium 9.1 mg/dL (8.6-10.4); Carbon Dioxide 19 mmol/L (22-30); Chloride 97 mmol/L (96-108); Globulin 2.9 gm/dL (2.2-3.7); Glomerular Filtration Rate 60; Glucose 187 mg/dL (70-105)
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
[2021-05-28 16:47] LABS: Appearance,Urine CLOUDY (Clear); Bacteria,Urine MOD /hpf (0); Bilirubin,Urine Negative (Negative); Color,Urine YELLOW; Culture Indicated,Urine yes; Glucose,Urine (UA) Negative (Negative); Ketones,Urine Negative (Negative); Leukocyte Esterase,Urine 500 /ug (Negative); Mucus,Urine MANY /hpf; Nitrate,Urine Negative (Negative); Protein,Urine 100 mg/dL (Negative); Specific Gravity,Urine 1.012 (1.000-1.035); Urine Blood >=1.0 mg/dL (Negative); Urine RBC 66 /hpf (0-3); Urine Squamous Epithelial Cell 0 /hpf (0-4); Urine WBC > 182 /hpf (0-4); Urobilinogen,Urine Negative
[2021-05-28] MEDS ORDERED: LACTATED RINGERS 1,000 ML IV ONE (16:50)
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
[2021-05-28 19:15] LABS: Appearance,Urine Turbid (Clear); Bacteria,Urine MOD /hpf (0); Bilirubin,Urine Negative (Negative); Color,Urine Yellow; Culture Indicated,Urine yes; Glucose,Urine (UA) Negative (Negative); Ketones,Urine Negative (Negative); Leukocyte Esterase,Urine Large /ug (Negative); Mucus,Urine MANY /hpf; Nitrate,Urine Positive (Negative); PH,Urine 5.5 (5.0-9.0); Protein,Urine >=300 mg/dL mg/dL (Negative); Urine Blood Large ery/mcL (Negative); Urine RBC 103 /hpf (0-3); Urine Squamous Epithelial Cell 0 /hpf (0-4); Urine WBC > 182 /hpf (0-4); Urobilinogen,Urine Normal
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
[2021-05-28] MEDS ORDERED: ONDANSETRON 4 MG/2 ML VIAL IV PRN (21:36)
[2021-05-28] MEDS: 0.9 % SODIUM CHLORIDE 1,000 ML IV SCH (21:45)
[2021-05-28] MEDS: 0.9 % SODIUM CHLORIDE 10 ML SYRINGE IV SCH (21:45)
[2021-05-28] MEDS: SENNOSIDES 1 TABLET PO SCH (22:20)
[2021-05-28] MEDS ORDERED: NICOTINE 14 MG PATCH TOPICAL ONE (22:42)
[2021-05-28] MEDS ORDERED: NICOTINE 14 MG PATCH ONE (22:50)
[2021-05-28] MEDS: CEFEPIME 2 GM VIAL IV SCH (23:15)
[2021-05-28] MEDS: HEPARIN 5,000 UNIT/ML VIAL SQ SCH (23:15)
[2021-05-29] MEDS ORDERED: VANCOMYCIN PER PHARMACY IV SCH (06:15)
[2021-05-29] MEDS: CEFEPIME 2 GM VIAL IV SCH ×3 (06:35→21:37)
[2021-05-29] MEDS: 0.9 % SODIUM CHLORIDE 10 ML SYRINGE IV SCH ×3 (06:36→21:37)
[2021-05-29 06:49] LABS: Hematocrit 37.4 % (41.0-55.0); Hemoglobin 12.4 g/dL (13.5-16.5); Mean Cell Volume 87.4 fL (80.0-100.0); Mean Corpuscular HGB Conc 33.2 g/dL (31.0-36.0); Mean Platelet Volume 11.1 fL (7.4-10.4); Platelet Count 189 K/mcL (140-440); RBC 4.28 M/mcL (4.50-5.90); Red Cell Distribution Width 14.2 % (11.5-14.5); WBC 15.6 K/mcL (4.5-11.0)
--- NOTE | 2021-05-29 06:56 | General Surgery Progress Note ---
SUBJECTIVE Subjective Patient information: Note initiated : 05/29/21 at 6:55 am Service Date, if different from initiated Date: [] Patient: Anshu Castillo 60 y/o M admitted on 05/28/21 for fever. Chief Complaint: Feels horrible. Constitutional Vitals: Vital Signs Temp Pulse Resp BP Pulse Ox 99 F 62 16 107/66 93 05/29/21 06:46 05/29/21 06:46 05/29/21 06:46 05/29/21 06:46 05/29/21 06:46 Period Temp Pulse Resp BP Sys/Downing Pulse Ox Last 24 Hr 99 F-102.3 F 55-74 16-24 92-152/50-95 91-98 Intake and Output 05/28/21 05/29/21 05/29/21 21:59 05:59 13:59 Intake Total 2500 800 Output Total 350 300 Balance 2150 500 Weight 86.999 kg Intake & Output: Intake & Output 05/28/21 05/29/21 05/29/21 21:59 05:59 13:59 Intake Total 2500 800 Output Total 350 300 Balance 2150 500 Weight 86.999 kg Intake: IV 2500 Sodium Chloride 0.9% 1,000 ml @ 1000 Wide Open IV .Q0M ONE Rx#: [id number] Lactated Ringers 1,000 ml @ 1000 Wide Open IV BOLUS ONE Rx#: [id number] Vancomycin 1,500 mg In Sodium 500 Chloride 0.9% 500 ml @ 333.3 mls/hr IV ONCE ONE Rx#: [id number] Oral 800 Output: Urine Catheter Amount 350 Void Amount 300 Other: Urine Appearance Cloudy Hematuria Urine Color Saxton Stool Color Brown Stool Consistency Liquid # Bowel Movements 5 General appearance: average body habitus, cooperative and no acute distress GI/Abdominal GI/Abdominal exam: Present tenderness (Mild tenderness to palpation over the right costovertebral angle/flank.) Additional comments: The nephrostomy tube appears to be draining well and appears to be affixed to the skin appropriately. There is no significant discharge coming from around the tube. A/P Narrative A/P Narrative: WBC is coming down nicely on antibiotics. I have examined the nephrostomy tube. It looks fine. the urine is cloudy consistent with infected urine. I would suspect that when he underwent nephrostogram on Thursday he had the introduction of some bacteria from the tube into the obstructed system with some pressure that led to infection. I do not see any need to change the nephrostomy tube at this time as long as it is draining well which it is. I would change the nephrostomy tube if he does not respond to culture specific antibiotics or if it becomes obstructed or possibly if the culture shows pseudomonas. If the nephrostomy tube needs to be changed this is done by Interventional Radiology and not Urology. I would obtain a CT Abdomen with and without IV contrast to evaluate further and rule out significant hydronephrosis and to rule out renal abscess, although now that he appears to be responding to antibiotics this is less important. This should be treated as a pyelonephritis and he should have a minimum of 2 weeks of culture specific antibiotics. Time Spent With Patient Time: Total time spent is greater than 50% in coordination of care (as documented) at patient's floor/unit and/or counseling patient: Total time spent with greater than 50% in coordination of care (as documented) at patient's floor/unit and/or counseling patient:: less than 15 minutes
[2021-05-29 07:12] LABS: ALT/SGPT 20 U/L (<40); AST/SGOT 19 U/L (<40); Albumin 2.8 gm/dL (3.2-5.2); Alkaline Phosphatase 70 U/L (39-117); Bilirubin,Direct 0.3 mg/dL (<0.3); Bilirubin,Total 0.7 mg/dL (0.1-1.0); Blood Urea Nitrogen 14 mg/dL (6-20); Calcium 8.4 mg/dL (8.6-10.4); Carbon Dioxide 19 mmol/L (22-30); Chloride 101 mmol/L (96-108); Globulin 2.8 gm/dL (2.2-3.7); Glomerular Filtration Rate 66; Glucose 131 mg/dL (70-105); Lactate Dehydrogenase 168 U/L (135-225); Phosphorous 1.7 mg/dL (2.5-4.5); Triglycerides 85 mg/dL (<150); Uric Acid 5.4 mg/dL (2.5-8.0)
[2021-05-29 07:48] LABS: Band Neutrophils % 1 % (0-10); Lymphocytes % 9 % (15-49); Monocytes % (Manual) 3 % (1-12); Platelet Estimate NORMAL (Normal); RBC Morphology NORMAL (Normal); Segmented Neutrophils % 87 % (38-78)
[2021-05-29] MEDS: 0.9 % SODIUM CHLORIDE 1,000 ML IV SCH ×3 (07:52→21:37)
[2021-05-29] MEDS: HEPARIN 5,000 UNIT/ML VIAL SQ SCH ×2 (08:25→20:42)
[2021-05-29] MEDS ORDERED: VANCOMYCIN 1,000 MG in 0.9 % SODIUM CHLORIDE 250 ML IV SCH (09:00)
[2021-05-29] MEDS ORDERED: IOPAMIDOL 100 ML BOTTLE IV ONE (09:03)
--- NOTE | 2021-05-29 09:13 | Internal Med Progress Note ---
SUBJECTIVE Subjective Patient information: Note initiated : 05/29/21 at 9:12 am Service Date, if different from initiated Date: [] Patient: Anshu Castillo 60 y/o M admitted on 05/28/21 for fever. Chief Complaint: [] Interval history: Mr. 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 The patient now nephrostomy tube apparently for a right ureteral stricture following the multiple procedure and complications which was placed in March 2021 followed shortly after by remove of a right ureteral stent. The patient is currently being evaluated by the [facility] for ureteric reconstruction. The day before admission the patient had a fluoroscopy study of the nephrostomy tube that showed a high grade stricture in the distal ureter at the iliac crossing resulting in mild hydroureter and hydronephrosis. Following that procedure the patient began to feel ill, on the day of admission he developed a fever a presented to the ED where he was found to have leukocytosis and a fever of 102.3. Urine analysis was positive for UTI. Internal medicine was asked to admit the patient. 05/29 Improved fever trend, WBC trending down, stable vitals, stable renal function. 2/ blood cultures growing gram negative bacillus, urine culture pending. Discontinue Vancomycin IV, continued Cefepime. CT abdomen/pelvis w contrast ordered to evaluate for abscess. Review of systems Constitutional: positive for chills, nausea, fatigue Physical exam Head: Atraumatic, normal inspection. Eyes: normal appearance, no scleral icterus. Neck: full ROM Respiratory: no respiratory distress. Cardiovascular: normal rate and rhythm, S1, S2. GI/Abdominal: soft, nontender, no guarding. : right nephrostomy tube, visible debris in clear section of tubing. Extremities: full range of motion, nontender. Neurological: CN II-XII intact, intact motor, intact sensation. Psychiatric: normal mood. Skin: warm, normal color Constitutional Vitals: Vital Signs Temp Pulse Resp BP Pulse Ox 99 F 62 16 107/66 93 05/29/21 06:46 05/29/21 06:46 05/29/21 06:46 05/29/21 06:46 05/29/21 06:46 Period Temp Pulse Resp BP Sys/Downing Pulse Ox Last 24 Hr 99 F-102.3 F 55-74 16-24 92-152/50-95 91-98 Intake and Output 05/28/21 05/29/21 05/29/21 21:59 05:59 13:59 Intake Total 2500 800 1000 Output Total 350 300 Balance 2150 500 1000 Weight 86.999 kg Intake & Output: Intake & Output 05/28/21 05/29/21 05/29/21 21:59 05:59 13:59 Intake Total 2500 800 1000 Output Total 350 300 Balance 2150 500 1000 Weight 86.999 kg Intake: IV 2500 1000 Sodium Chloride 0.9% 1,000 ml @ 1000 1000 100 mls/hr IV .Q10H [facility] Rx#: [id number] Lactated Ringers 1,000 ml @ 1000 Wide Open IV BOLUS ONE Rx#: [id number] Vancomycin 1,500 mg In Sodium 500 Chloride 0.9% 500 ml @ 333.3 mls/hr IV ONCE ONE Rx#: [id number] Oral 800 Output: Urine Catheter Amount 350 Void Amount 300 Other: Meal Breakfast Percent of Meal Consumed 100% Feeding Ability Independent Urine Appearance Cloudy Hematuria Urine Color [place] Stool Color Brown Stool Consistency Liquid # Bowel Movements 5 OBJ DATA Labs CBC & Chem 7: 05/29/21 05:08 05/29/21 05:08 Labs: Abnormal Lab Results 05/29/21 05/29/21 05/28/21 05:08 05:08 18:08 WBC 15.6 H RBC 4.28 L Hgb 12.4 L Hct 37.4 L MPV 11.1 H Neut % (Auto) Lymph % (Auto) Lymph # (Auto) [place] # (Auto) Seg Neutrophils % 87 H Lymphocytes % 9 L Absolute Neutrophils POC Sodium Sodium 131 L Carbon Dioxide 19 L POC Total CO2 POC BUN Creatinine POC Creatinine Glucose 131 H POC Glucose Calcium 8.4 L POC WB Ioniz Calcium Phosphorus 1.7 L Total Bilirubin Direct Bilirubin 0.3 H Total Protein 5.6 L Albumin 2.8 L Procalcitonin Urine Appearance Turbid A Urine Protein >=300 mg/dl A Urine Occult Blood Large A Urine Nitrate Positive A Ur Leukocyte Esterase Large A Urine RBC 103 H Urine WBC > 182 H Urine Bacteria Mod A Urine Mucus Many A 05/28/21 05/28/21 05/28/21 15:37 14:38 14:38 WBC RBC Hgb Hct MPV Neut % (Auto) Lymph % (Auto) Lymph # (Auto) [place] # (Auto) Seg Neutrophils % Lymphocytes % Absolute Neutrophils POC Sodium 132 L Sodium 128 L Carbon Dioxide 19 L POC Total CO2 18 L POC BUN 22 H Creatinine 1.3 H POC Creatinine 1.3 H Glucose 187 H POC Glucose 195 H Calcium POC WB Ioniz Calcium 1.08 L Phosphorus Total Bilirubin 1.3 H Direct Bilirubin Total Protein Albumin Procalcitonin 8.66 H Urine Appearance Cloudy A Urine Protein 100 A Urine Occult Blood >=1.0 A Urine Nitrate Ur Leukocyte Esterase 500 A Urine RBC 66 H Urine WBC > 182 H Urine Bacteria Mod A Urine Mucus Many A 05/28/21 14:38 WBC 25.5 H RBC Hgb Hct 40.4 L MPV 10.5 H Neut % (Auto) 88.0 H Lymph % (Auto) 4.9 L Lymph # (Auto) 1.25 L [place] # (Auto) 1.75 H Seg Neutrophils % Lymphocytes % Absolute Neutrophils 22.42 H POC Sodium Sodium Carbon Dioxide POC Total CO2 POC BUN Creatinine POC Creatinine Glucose POC Glucose Calcium POC WB Ioniz Calcium Phosphorus Total Bilirubin Direct Bilirubin Total Protein Albumin Procalcitonin Urine Appearance Urine Protein Urine Occult Blood Urine Nitrate Ur Leukocyte Esterase Urine RBC Urine WBC Urine Bacteria Urine Mucus Meds: Medications Cefepime HCl (Cefepime 2 Gm Vial) 2 gm IV Q8H [facility]; Protocol Last Admin: 05/29/21 06:35 Dose: 2 gm Documented by: Heparin Sodium (Porcine) (Heparin 5,000 Unit/Ml Vial) 5,000 unit SQ Q12 [facility] Last Admin: 05/29/21 08:25 Dose: 5,000 unit Documented by: Sodium Chloride (Sodium Chloride 0.9%) 1,000 mls @ 100 mls/hr IV .Q10H [facility] Last Admin: 05/29/21 07:52 Dose: 100 mls/hr Documented by: Nicotine (Nicotine 14 Mg Patch) 14 mg TOPICAL DAILY@1000 [facility] Ondansetron HCl (Ondansetron 4 Mg/2 Ml Vial) 4 mg IV Q6HP PRN PRN Reason: Nausea And Vomiting Last Admin: 05/29/21 07:56 Dose: 4 mg Documented by: Senna (Sennosides 1 Tablet) 2 tab PO HS [facility] Last Admin: 05/28/21 22:20 Dose: Not Given Documented by: Sodium Chloride (0.9 % Sodium Chloride 10 Ml Syringe) 10 ml IV Q8 [facility] Last Admin: 05/29/21 06:36 Dose: Not Given Documented by: A/P Narrative A/P Narrative: Assessment: 60 year old male with a right nephrostomy tube placed for right ureteral stricture following ureteral iatrogenic injury complicated by ureteral stricture admitted for pyelonephritis that developed after a nephrostogram on 05/27/21. 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 -Continue IV fluid until sepsis physiology completely resolved and tolerating liquids. -CT abdomen/pelvis w contrast. -Follow urine and blood cultures. -Monitor fever trend, vitals, CBC and inpatient panel. -Urology consulted - Carole. -DVT ppx: Heparin SQ -Code status: Full -Disposition: Home with antibiotics per culture results, likely treat 14 days, with urology follow up shortly after discharge. Time Spent With Patient Time: Total time spent is greater than 50% in coordination of care (as documented) at patient's floor/unit and/or counseling patient: QUALITY Stroke Symptom Onset Unknown: No VTE Deep Vein Thrombosis/Pulmonary Embolism Present on Admission: No
[2021-05-29] MEDS: NICOTINE 14 MG PATCH TOPICAL SCH (10:05)
[2021-05-29] MEDS ORDERED: MAGNESIUM SULFATE 2 GM/50 ML BAG IV ONE (10:13)
--- NOTE | 2021-05-29 10:46 | Cat Scan Report ---
CLINICAL INFORMATION: Right pyelonephritis COMPARISON: Abdomen and pelvic CT 08/07/2020 and 01/28/2021 TECHNIQUE: Enteric contrast was utilized. 80 cc of Isovue-370 were injected intravenously, and 50 seconds later 2.5 mm helical slices were obtained from the lung apices through the subtrochanteric regions of the femurs. Following reconstruction, 2.5 mm sagittal, coronal and axial reformatted images were processed and reviewed at multiple windows and levels. 7 mm MIP reconstructions were obtained through the lungs to optimize nodule detection.The exam was performed using radiation dose optimization techniques including, but not limited to, automated exposure control, adjustment of the mA and/or kV according to patient size and use of iterative reconstruction technique. FINDINGS: Pulmonary parenchymal windows show moderate patchy airspace disease in the peripheral posterior right lower lobe with small right pleural effusion. This is new from previous study. Likely represents a small infiltrate. There is subsegmental atelectasis in the posterior left lower lobe. Mediastinal windows show the heart is normal in size and configuration with scattered calcific plaque in the coronary arteries. The pulmonary arteries are normal diameter and opacified-no evidence of embolus. Thoracic aorta is also normal in diameter. There is no adenopathy in the mediastinal, hilar or axillary regions. Esophagus is grossly normal. Thyroid is unremarkable. Abdominal images mild fatty change within the liver-as previously seen. There are no focal hepatic lesions. The gallbladder and bile ducts are normal: CBD is 5 mm. The left kidney, both adrenal glands, spleen, pancreas and aorta, including aortic branches, are normal in size, configuration and attenuation without focal lesion. There is no free air, free fluid or adenopathy. Both kidneys are normal and symmetric in size, position and configuration: The right is 11.4 cm in length and the left is 10 cm in length. Today's examination shows scattered low-attenuation foci throughout the cortex and medulla of the right kidney compatible with lobar nephronia/pyelonephritis. The largest, in the superior pole is 5 cm. A 4.2 cm focus is seen anterior cortex mid right kidney and a 3 cm focus is seen inferior pole the right kidney. A 3 mm nonobstructing stone is seen within a superior calyx of the right kidney. There are two stones in the mid right ureter above the iliac crossin mm and [address] On prior CT, there was a large urinoma in the anterior right parapsoas region due to ureteral perforation. This has resolved. A right nephrostomy has been placed entering the inferior calyx of the right kidney with the pigtail coiled within the inferior pelvis. It has decompressed right upper collecting system-no evidence of hydronephrosis. A 3 mm nonobstructing stone within a superior calyx of the left kidney. Left kidney upper collecting system and ureter are otherwise normal. Pelvic images show urinary bladder, prostate and seminal vesicles are normal. Sigmoid diverticulosis appreciated-no evidence of diverticulitis. Right colectomy changes again noted. The remaining large bowel small bowel and stomach are normal. Bone windows show no osseous abnormality throughout the chest, abdomen or pelvis. IMPRESSION: 1. Three vague low-attenuation foci within the renal parenchyma ranging up to 5 cm in the superior pole. Findings compatible with pyelonephritis/lobar nephronia. No evidence of renal abscess. 2. Two adjacent stones the mid right ureter: 4 mm and 3 mm respectively. 3. Right nephrostomy coiled in the inferior right renal pelvis last inferior calyx. The nephrostomy tube is functional and decompresses the right upper collecting system. As a result, there is no evidence of right hydronephrosis hydroureter despite the presence of obstructing stones in the mid right ureter. Also, the peripsoas urinoma, seen on prior study, due to ureteral perforation has resolved. 4. Sigmoid diverticulosis, but no evidence of diverticulitis 5. Mild patchy infiltrate posterior right lower lobe with small right pleural effusion-new. Interpreted and Authenticated by: Arnaud Whitmore 05/29/21
--- NOTE | 2021-05-29 13:39 | Internal Med Progress Note ---
SUBJECTIVE Subjective Patient information: Note initiated : 05/29/21 at 1:33 pm Service Date, if different from initiated Date: [] Patient: Anshu Castillo 60 y/o M admitted on 05/28/21 for fever. Chief Complaint: [] Interval history: Mr. 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 The patient now nephrostomy tube apparently for a right ureteral stricture following the multiple procedure and complications which was placed in March 2021 followed shortly after by remove of a right ureteral stent. The patient is currently being evaluated by the [facility] for ureteric reconstruction. The day before admission the patient had a fluoroscopy study of the nephrostomy tube that showed a high grade stricture in the distal ureter at the iliac crossing resulting in mild hydroureter and hydronephrosis. Following that procedure the patient began to feel ill, on the day of admission he developed a fever a presented to the ED where he was found to have leukocytosis and a fever of 102.3. Urine analysis was positive for UTI. Internal medicine was asked to admit the patient. 05/29 Improved fever trend, WBC trending down, stable vitals, stable renal function. 2/ blood cultures growing gram negative bacillus, urine culture pending. Discontinue Vancomycin IV, continued Cefepime. CT abdomen/pelvis w contrast ordered to evaluate for abscess. 05/30 Constitutional Vitals: Vital Signs Temp Pulse Resp BP Pulse Ox 98.7 F 65 18 117/71 94 05/29/21 11:22 05/29/21 11:22 05/29/21 11:22 05/29/21 11:22 05/29/21 11:22 Period Temp Pulse Resp BP Sys/Downing Pulse Ox Last 24 Hr 98.7 F-102.3 F 55-74 16-24 92-152/50-95 91-98 Intake and Output 05/28/21 05/29/21 05/29/21 21:59 05:59 13:59 Intake Total 2500 800 1000 Output Total 350 300 Balance 2150 500 1000 Weight 86.999 kg 86.999 kg Patient Weight 05/30/21 05:59 Weight 86.999 kg Intake & Output: Intake & Output 05/28/21 05/29/21 05/29/21 21:59 05:59 13:59 Intake Total 2500 800 1000 Output Total 350 300 Balance 2150 500 1000 Weight 86.999 kg 86.999 kg Intake: IV 2500 1000 Sodium Chloride 0.9% 1,000 ml @ 1000 1000 100 mls/hr IV .Q10H [facility] Rx#: [id number] Lactated Ringers 1,000 ml @ 1000 Wide Open IV BOLUS ONE Rx#: [id number] Vancomycin 1,500 mg In Sodium 500 Chloride 0.9% 500 ml @ 333.3 mls/hr IV ONCE ONE Rx#: [id number] Oral 800 Output: Urine Catheter Amount 350 Void Amount 300 Other: Meal Breakfast Percent of Meal Consumed 100% Feeding Ability Independent Urine Appearance Cloudy Hematuria Urine Color [place] Stool Color Brown Stool Consistency Liquid # Bowel Movements 5 Exam: General: Alert, Awake, No acute Distress Eyes/N/T: EOMI, Head/Neck: neck supple, CV: RRR, No murmurs, Pulm: Clear b/l, no wheezing/rhonchi/rales Abd: soft, nontender, +BS x4 : right nephrostomy tube, visible debris in clear section of tubing. Ext: no clubbing/cyanosis/edema Neuro: Alert, no focal deficits, moves all extremities, Skin: warm/dry OBJ DATA Labs CBC & Chem 7: 05/29/21 05:08 05/29/21 05:08 Labs: Abnormal Lab Results 05/29/21 05/29/21 05/28/21 05:08 05:08 18:08 WBC 15.6 H RBC 4.28 L Hgb 12.4 L Hct 37.4 L MPV 11.1 H Neut % (Auto) Lymph % (Auto) Lymph # (Auto) [place] # (Auto) Seg Neutrophils % 87 H Lymphocytes % 9 L Absolute Neutrophils POC Sodium Sodium 131 L Carbon Dioxide 19 L POC Total CO2 POC BUN Creatinine POC Creatinine Glucose 131 H POC Glucose Calcium 8.4 L POC WB Ioniz Calcium Phosphorus 1.7 L Total Bilirubin Direct Bilirubin 0.3 H Total Protein 5.6 L Albumin 2.8 L Procalcitonin Urine Appearance Turbid A Urine Protein >=300 mg/dl A Urine Occult Blood Large A Urine Nitrate Positive A Ur Leukocyte Esterase Large A Urine RBC 103 H Urine WBC > 182 H Urine Bacteria Mod A Urine Mucus Many A 07/05/28/21 05/28/21 15:37 14:38 14:38 WBC RBC Hgb Hct MPV Neut % (Auto) Lymph % (Auto) Lymph # (Auto) [place] # (Auto) Seg Neutrophils % Lymphocytes % Absolute Neutrophils POC Sodium 132 L Sodium 128 L Carbon Dioxide 19 L POC Total CO2 18 L POC BUN 22 H Creatinine 1.3 H POC Creatinine 1.3 H Glucose 187 H POC Glucose 195 H Calcium POC WB Ioniz Calcium 1.08 L Phosphorus Total Bilirubin 1.3 H Direct Bilirubin Total Protein Albumin Procalcitonin 8.66 H Urine Appearance Cloudy A Urine Protein 100 A Urine Occult Blood >=1.0 A Urine Nitrate Ur Leukocyte Esterase 500 A Urine RBC 66 H Urine WBC > 182 H Urine Bacteria Mod A Urine Mucus Many A 05/28/21 14:38 WBC 25.5 H RBC Hgb Hct 40.4 L MPV 10.5 H Neut % (Auto) 88.0 H Lymph % (Auto) 4.9 L Lymph # (Auto) 1.25 L [place] # (Auto) 1.75 H Seg Neutrophils % Lymphocytes % Absolute Neutrophils 22.42 H POC Sodium Sodium Carbon Dioxide POC Total CO2 POC BUN Creatinine POC Creatinine Glucose POC Glucose Calcium POC WB Ioniz Calcium Phosphorus Total Bilirubin Direct Bilirubin Total Protein Albumin Procalcitonin Urine Appearance Urine Protein Urine Occult Blood Urine Nitrate Ur Leukocyte Esterase Urine RBC Urine WBC Urine Bacteria Urine Mucus Meds: Medications Cefepime HCl (Cefepime 2 Gm Vial) 2 gm IV Q8H [facility]; Protocol Last Admin: 05/29/21 13:10 Dose: 2 gm Documented by: Heparin Sodium (Porcine) (Heparin 5,000 Unit/Ml Vial) 5,000 unit SQ Q12 [facility] Last Admin: 05/29/21 08:25 Dose: 5,000 unit Documented by: Sodium Chloride (Sodium Chloride 0.9%) 1,000 mls @ 100 mls/hr IV .Q10H [facility] Last Admin: 05/29/21 07:52 Dose: 100 mls/hr Documented by: Sodium Chloride (Sodium Chloride 0.9%) 1,000 mls @ 100 mls/hr IV .Q10H [facility] Last Admin: 05/29/21 09:30 Dose: 100 mls/hr Documented by: Nicotine (Nicotine 14 Mg Patch) 14 mg TOPICAL DAILY@1000 [facility] Last Admin: 05/29/21 10:05 Dose: 14 mg Documented by: Ondansetron HCl (Ondansetron 4 Mg/2 Ml Vial) 4 mg IV Q6HP PRN PRN Reason: Nausea And Vomiting Last Admin: 05/29/21 07:56 Dose: 4 mg Documented by: Potassium/Phosphorus/Sodium (Neutra Phos 1 Packet) 2 packet PO BID [facility] Stop: 05/30/21 21:01 Senna (Sennosides 1 Tablet) 2 tab PO HS [facility] Last Admin: 05/28/21 22:20 Dose: Not Given Documented by: Sodium Chloride (0.9 % Sodium Chloride 10 Ml Syringe) 10 ml IV Q8 [facility] Last Admin: 05/29/21 06:36 Dose: Not Given Documented by: A/P Narrative A/P Narrative: A: #Sepsis: 2/2 pyelonephritis complicated by bacteremia -resolving sepsis physiology #Bacteremia(GNB): #Hyponatremia: improving #Right ureteral high grade stricture w/Nephrostomy tube: #Hx of iatrogenic ureter injury complicated by paraureteric urinoma and ureteral stricture #Hx of renal calculi #Tobacco use disorder Plan -Continue Cefepime, discontinued Vancomycin IV. 2-week abx course. pending BC/UC -IV fluid until sepsis physiology completely resolved and tolerating liquids -Monitor fever trend -Urology following -DVT ppx: Heparin SQ -Code status: Nub Card Tender Spent With Patient Time: Total time spent is greater than 50% in coordination of care (as documented) at patient's floor/unit and/or counseling patient: QUALITY Stroke Symptom Onset Unknown: No VTE Deep Vein Thrombosis/Pulmonary Embolism Present on Admission: No
[2021-05-29] MEDS ORDERED: HYDROmorphone 2 MG TABLET PO PRN (20:17)
[2021-05-29] MEDS: NEUTRA PHOS 1 PACKET PO SCH (20:37)
[2021-05-29] MEDS: SENNOSIDES 1 TABLET PO SCH (21:25)
[2021-05-30 06:33] LABS: Basophils # (Auto) 0.03 K/mcL (0.00-0.20); Basophils % (Auto) 0.3 % (0.0-2.0); Eosinophils % (Auto) 0.9 % (0.0-7.0); Hematocrit 37.9 % (41.0-55.0); Hemoglobin 12.8 g/dL (13.5-16.5); Lymphocytes # (Auto) 1.36 K/mcL (1.50-4.80); Lymphocytes % (Auto) 12.2 % (15.0-49.0); Mean Cell Volume 88.1 fL (80.0-100.0); Mean Corpuscular HGB Conc 33.8 g/dL (31.0-36.0); Monocytes # (Auto) 0.96 K/mcL (0.10-0.90); Monocytes % (Auto) 8.6 % (1.0-12.0); Platelet Count 188 K/mcL (140-440); Red Cell Distribution Width 14.1 % (11.5-14.5); WBC 11.1 K/mcL (4.5-11.0)
[2021-05-30] MEDS: 0.9 % SODIUM CHLORIDE 10 ML SYRINGE IV SCH ×3 (06:37→21:54)
[2021-05-30] MEDS: CEFEPIME 2 GM VIAL IV SCH ×2 (06:37→13:56)
[2021-05-30 07:12] LABS: ALT/SGPT 18 U/L (<40); AST/SGOT 18 U/L (<40); Albumin 3.1 gm/dL (3.2-5.2); Albumin/Globulin Ratio 1.1 (1.0-2.3); Alkaline Phosphatase 73 U/L (39-117); Bilirubin,Direct < 0.2 mg/dL (0-0.3); Bilirubin,Total 0.4 mg/dL (0.1-1.0); Blood Urea Nitrogen 10 mg/dL (6-20); Calcium 8.5 mg/dL (8.6-10.4); Carbon Dioxide 22 mmol/L (22-30); Chloride 101 mmol/L (96-108); Globulin 2.7 gm/dL (2.2-3.7); Glomerular Filtration Rate 93; Glucose 112 mg/dL (70-105); Lactate Dehydrogenase 197 U/L (135-225); Phosphorous 1.8 mg/dL (2.5-4.5); Triglycerides 168 mg/dL (<150); Uric Acid 4.7 mg/dL (2.5-8.0)
[2021-05-30] MEDS: 0.9 % SODIUM CHLORIDE 1,000 ML IV SCH (07:38)
[2021-05-30] MEDS: HEPARIN 5,000 UNIT/ML VIAL SQ SCH ×2 (08:06→21:53)
[2021-05-30] MEDS: NEUTRA PHOS 1 PACKET PO SCH ×3 (08:06→21:50)
--- NOTE | 2021-05-30 08:36 | Internal Med Progress Note ---
SUBJECTIVE Subjective Patient information: Note initiated : 05/30/21 at 8:30 am Service Date, if different from initiated Date: [] Patient: Anshu Castillo 60 y/o M admitted on 05/28/21 for fever. Chief Complaint: [] Interval history: Mr. 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 The patient now nephrostomy tube apparently for a right ureteral stricture following the multiple procedure and complications which was placed in March 2021 followed shortly after by remove of a right ureteral stent. The patient is currently being evaluated by the [facility] for ureteric reconstruction. The day before admission the patient had a fluoroscopy study of the nephrostomy tube that showed a high grade stricture in the distal ureter at the iliac crossing resulting in mild hydroureter and hydronephrosis. Following that procedure the patient began to feel ill, on the day of admission he developed a fever a presented to the ED where he was found to have leukocytosis and a fever of 102.3. Urine analysis was positive for UTI. Internal medicine was asked to admit the patient. 05/29 Improved fever trend, WBC trending down, stable vitals, stable renal function. 2/2 blood cultures growing gram negative bacillus, urine culture pending. Discontinue Vancomycin IV, continued Cefepime. CT abdomen/pelvis w contrast ordered to evaluate for abscess. 05/30 Feeling a little better today. Fever curve improving fever curve improved. Leukocytosis improved. Blood culture with E. coli and urine culture with E. coli and Enterococcus pending final sensitivities. Review of Systems: denies headache/fever/chills/nausea/vomiting/chest or abdominal pain/cough/dyspnea/diarrhea. Otherwise see above. Constitutional Vitals: Vital Signs Temp Pulse Resp BP Pulse Ox 98 F 54 L 16 116/72 94 05/30/21 07:35 05/30/21 07:35 05/30/21 07:35 05/30/21 07:35 05/30/21 07:35 Period Temp Pulse Resp BP Sys/Downing Pulse Ox Last 24 Hr 98 F-100.0 F 54-65 16-20 98-117/55-74 91-95 Intake and Output 05/29/21 05/30/21 05/30/21 21:59 05:59 13:59 Intake Total 2490 400 1999 Output Total 1075 1125 Balance 1415 -725 1999 Weight 88.587 kg Intake & Output: Intake & Output 05/29/21 05/30/21 05/30/21 21:59 05:59 13:59 Intake Total 2490 400 1999 Output Total 1075 1125 Balance 1415 -725 1999 Weight 88.587 kg Intake: IV 1000 2000 Sodium Chloride 0.9% 1,000 ml @ 1000 2000 100 mls/hr IV .Q10H [facility] Rx#: [id number] Oral 1490 400 Output: Urine Catheter Amount 475 475 Void Amount 600 650 Other: Meal Dinner Percent of Meal Consumed 25% Urine Appearance Clear Clear Urine Color Dark Yellow Pale Urine Odor Normal Normal Exam: General: Alert, Awake, No acute Distress Eyes/N/T: EOMI, Head/Neck: neck supple, CV: RRR, No murmurs, Pulm: Clear b/l, no wheezing/rhonchi/rales Abd: soft, nontender, +BS x4 : right nephrostomy tube, visible debris in clear section of tubing. Ext: no clubbing/cyanosis/edema Neuro: Alert, no focal deficits, moves all extremities, Skin: warm/dry OBJ DATA Labs CBC & Chem 7: 05/30/21 05:05 05/30/21 05:05 Labs: Abnormal Lab Results 05/30/21 05/30/21 05/29/21 05:05 05:05 05:08 WBC 11.1 H RBC 4.30 L Hgb 12.8 L Hct 37.9 L MPV 11.0 H Neut % (Auto) Lymph % (Auto) 12.2 L Lymph # (Auto) 1.36 L [place] # (Auto) 0.96 H Seg Neutrophils % Lymphocytes % Absolute Neutrophils 8.68 H POC Sodium Sodium 132 L 131 L Carbon Dioxide 19 L POC Total CO2 POC BUN Creatinine POC Creatinine Glucose 112 H 131 H POC Glucose Calcium 8.5 L 8.4 L POC WB Ioniz Calcium Phosphorus 1.8 L 1.7 L Total Bilirubin Direct Bilirubin 0.3 H Total Protein 5.8 L 5.6 L Albumin 3.1 L 2.8 L Triglycerides 168 H Procalcitonin Urine Appearance Urine Protein Urine Occult Blood Urine Nitrate Ur Leukocyte Esterase Urine RBC Urine WBC Urine Bacteria Urine Mucus 05/29/21 05/28/21 05/28/21 05:08 18:08 15:37 WBC 15.6 H RBC 4.28 L Hgb 12.4 L Hct 37.4 L MPV 11.1 H Neut % (Auto) Lymph % (Auto) Lymph # (Auto) [place] # (Auto) Seg Neutrophils % 87 H Lymphocytes % 9 L Absolute Neutrophils POC Sodium Sodium Carbon Dioxide POC Total CO2 POC BUN Creatinine POC Creatinine Glucose POC Glucose Calcium POC WB Ioniz Calcium Phosphorus Total Bilirubin Direct Bilirubin Total Protein Albumin Triglycerides Procalcitonin Urine Appearance Turbid A Cloudy A Urine Protein >=300 mg/dl A 100 A Urine Occult Blood Large A >=1.0 A Urine Nitrate Positive A Ur Leukocyte Esterase Large A 500 A Urine RBC 103 H 66 H Urine WBC > 182 H > 182 H Urine Bacteria Mod A Mod A Urine Mucus Many A Many A 05/28/21 05/28/21 05/28/21 14:38 14:38 14:38 WBC 25.5 H RBC Hgb Hct 40.4 L MPV 10.5 H Neut % (Auto) 88.0 H Lymph % (Auto) 4.9 L Lymph # (Auto) 1.25 L [place] # (Auto) 1.75 H Seg Neutrophils % Lymphocytes % Absolute Neutrophils 22.42 H POC Sodium 132 L Sodium 128 L Carbon Dioxide 19 L POC Total CO2 18 L POC BUN 22 H Creatinine 1.3 H POC Creatinine 1.3 H Glucose 187 H POC Glucose 195 H Calcium POC WB Ioniz Calcium 1.08 L Phosphorus Total Bilirubin 1.3 H Direct Bilirubin Total Protein Albumin Triglycerides Procalcitonin 8.66 H Urine Appearance Urine Protein Urine Occult Blood Urine Nitrate Ur Leukocyte Esterase Urine RBC Urine WBC Urine Bacteria Urine Mucus Meds: Medications Cefepime HCl (Cefepime 2 Gm Vial) 2 gm IV Q8H [facility]; Protocol Last Admin: 05/30/21 06:37 Dose: 2 gm Documented by: Heparin Sodium (Porcine) (Heparin 5,000 Unit/Ml Vial) 5,000 unit SQ Q12 [facility] Last Admin: 05/30/21 08:06 Dose: 5,000 unit Documented by: Hydromorphone HCl (Hydromorphone 2 Mg Tablet) 2 - 4 mg PO Q6HP PRN; Protocol PRN Reason: Per Pain Protocol Last Admin: 05/29/21 20:38 Dose: 2 mg Documented by: Sodium Chloride (Sodium Chloride 0.9%) 1,000 mls @ 100 mls/hr IV .Q10H [facility] Last Admin: 05/30/21 07:38 Dose: 100 mls/hr Documented by: Nicotine (Nicotine 14 Mg Patch) 14 mg TOPICAL DAILY@1000 [facility] Last Admin: 05/29/21 10:05 Dose: 14 mg Documented by: Ondansetron HCl (Ondansetron 4 Mg/2 Ml Vial) 4 mg IV Q6HP PRN PRN Reason: Nausea And Vomiting Last Admin: 05/29/21 07:56 Dose: 4 mg Documented by: Potassium/Phosphorus/Sodium (Neutra Phos 1 Packet) 2 packet PO BID [facility] Stop: 05/30/21 21:01 Last Admin: 05/30/21 08:06 Dose: 2 packet Documented by: Senna (Sennosides 1 Tablet) 2 tab PO HS [facility] Last Admin: 05/29/21 21:25 Dose: Not Given Documented by: Sodium Chloride (0.9 % Sodium Chloride 10 Ml Syringe) 10 ml IV Q8 [facility] Last Admin: 05/30/21 06:37 Dose: Not Given Documented by: A/P Narrative A/P Narrative: A: #Sepsis: 2/2 pyelonephritis complicated by bacteremia -resolving sepsis physiology #Pyelonephritis( wit Enterococcus Faecium & E.coli) #Bacteremia(E. 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 2-week abx course switch to oral upon d/c. pending / -Urology following -replete electrolytes -DVT ppx: Heparin SQ Code status: Craft Coordinator Spent With Patient Time: Total time spent is greater than 50% in coordination of care (as documented) at patient's floor/unit and/or counseling patient: QUALITY Stroke Symptom Onset Unknown: No VTE Deep Vein Thrombosis/Pulmonary Embolism Present on Admission: No
[2021-05-30] MEDS: NICOTINE 14 MG PATCH TOPICAL SCH (09:17)
--- NOTE | 2021-05-30 11:46 | Discharge Summary ---
Discharge Provider Provider Patient information: Note initiated : 05/30/21 at 11:46 am Service Date, if different from initiated Date: [] Patient: Anshu Castillo 60 y/o M admitted on 05/28/21 for fever. Chief Complaint: [] Date of admission: 05/28/21 21:31 Discharge date: 05/31/21 Primary care physician: PCP No Consults: 05/28/21 Consult to Physician [CONS] Stat Comment: Consulting Provider: Jasmeet Lam Reason For Exam: Physician to Consult Consult to Physician [CONS] Stat Comment: Consulting Provider: Robin Srinivasan Reason For Exam: Physician to Consult Discharge Meds Discharge Medications Home Medications hydromorphone [Dilaudid] 4 mg PO Q6H PRN 04/02/21 [History Confirmed 05/29/21 Last Taken 04/02/21] amoxicillin 500 mg PO Q8H #33 tab 05/30/21 [Rx Last Taken Unknown] COURSE Hospital Course Hospital course: Interval history: Mr. 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 The patient now nephrostomy tube apparently for a right ureteral stricture following the multiple procedure and complications which was placed in March 2021 followed shortly after by remove of a right ureteral stent. The patient is currently being evaluated by the [facility] for ureteric reconstruction. The day before admission the patient had a fluoroscopy study of the nephrostomy tube that showed a high grade stricture in the distal ureter at the iliac crossing resulting in mild hydroureter and hydronephrosis. Following that procedure the patient began to feel ill, on the day of admission he developed a fever a presented to the ED where he was found to have leukocytosis and a fever of 102.3. Urine analysis was positive for UTI. Internal medicine was asked to admit the patient. 05/29 Improved fever trend, WBC trending down, stable vitals, stable renal function. 2/2 blood cultures growing gram negative bacillus, urine culture pending. Discontinue Vancomycin IV, continued Cefepime. CT abdomen/pelvis w contrast ordered to evaluate for abscess. 05/30 Feeling a little better today. Fever curve improving fever curve improved. Leukocytosis improved. Blood culture with E. coli and urine culture with E. coli and Enterococcus pending final sensitivities. 05/31 Patient doing well. Feeling well. Laboratory significantly improved. A: #Sepsis: 2/2 pyelonephritis complicated by bacteremia #Pyelonephritis(UC wit Enterococcus Faecium & E.coli) #Bacteremia(E. 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 #Hx of renal calculi #Tobacco use disorder Discharge diagnosis: Pyelonephritis bacteremia hyponatremia hypophosphatemia Secondary discharge diagnosis: History of right ureteral high-grade stricture with nephrostomy tube Time spent discussing smoking cessation with patient: more than 10 minutes Time Spent with Patient Time attestation: Total time spent providing and/or coordinating discharge services: EXAM Constitutional Vitals: Temp Pulse Resp BP Pulse Ox 97.8 F 56 L 18 122/76 95 05/30/21 11:33 05/30/21 11:33 05/30/21 11:33 05/30/21 11:33 05/30/21 11:33 Discharge Data Data Completed and Pending Labs on day of discharge: Labs from last 24 hours 05/30/21 05/30/21 05:05 05:05 WBC 11.1 H RBC 4.30 L Hgb 12.8 L Hct 37.9 L MCV 88.1 MCH 29.8 MCHC 33.8 RDW 14.1 Plt Count 188 MPV 11.0 H Neut % (Auto) 78.0 Lymph % (Auto) 12.2 L [place] % (Auto) 8.6 Eos % (Auto) 0.9 Baso % (Auto) 0.3 Lymph # (Auto) 1.36 L [place] # (Auto) 0.96 H Eos # (Auto) 0.10 Baso # (Auto) 0.03 Absolute Neutrophils 8.68 H Sodium 132 L Potassium 3.5 Chloride 101 Carbon Dioxide 22 Anion Gap 9.0 BUN 10 Creatinine 0.9 GFR Calculation 93 Glucose 112 H Uric Acid 4.7 Calcium 8.5 L Phosphorus 1.8 L Magnesium 2.1 Total Bilirubin 0.4 Direct Bilirubin < 0.2 GGT 38 AST 18 ALT 18 Alkaline Phosphatase 73 Lactate Dehydrogenase 197 Total Protein 5.8 L Albumin 3.1 L Globulin 2.7 Albumin/Globulin Ratio 1.1 Triglycerides 168 H Preliminary micro results at discharge 05/28/21 18:11 Urine Culture - Preliminary Urine - Nephrostomy Enterococcus faecium (grp d) Escherichia coli 05/28/21 14:38 Blood Culture - Preliminary Blood Escherichia coli 05/28/21 14:55 Blood Culture - Preliminary Blood Escherichia coli 05/28/21 15:37 Urine Culture - Preliminary Urine - Clean Void Mid-Stream Escherichia coli Enterococcus faecium (grp d) Discharge Plan Patient/Caregiver Discharge Instructions Activity: increase activity as tolerated Diet: Regular Diet Activity Restrictions/Additional Instructions: Follow-up with PCP in 3 to 7 days Prescriptions: New amoxicillin 500 mg tablet 500 mg PO Q8H Qty: 33 RF: 0 Continued hydromorphone [Dilaudid] 4 mg Tablet 4 mg PO Q6H PRN (Reason: Pain) RF: 0 Follow Up Plan Follow up with: Jasmeet Lam MD [Physician] - Patient Disposition: Home, Self-Care Prognosis: Fair Overall status at discharge: patient is progressing back to baseline Discharge Orders: Discharge Order (Routine); Ordered 05/31/21 Ordered By: Gary Rudolph [facility] VTE Deep Vein Thrombosis/Pulmonary Embolism Present on Admission: No
--- NOTE | 2021-05-30 16:58 | EKG ---
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 Measurements Intervals [place] Rate: 71 P: 69 [place]: 160 QRS: 97 QRSD: 100 T: 54 QT: 368 QTc: 400 Interpretive Statements SINUS RHYTHM CONSIDER RIGHT VENTRICULAR HYPERTROPHY Electronically Signed On 05-30-2021 16:58:30 PDT by Flash Eller M.D. /[id number]
[2021-05-30] MEDS: AMPICILLIN SODIUM 1 GM in 0.9 % SODIUM CHLORIDE 50 ML IV SCH ×2 (18:02→21:46)
[2021-05-30] MEDS: SENNOSIDES 1 TABLET PO SCH (21:50)
[2021-05-31] MEDS: AMPICILLIN SODIUM 1 GM in 0.9 % SODIUM CHLORIDE 50 ML IV SCH ×3 (01:58→10:01)
[2021-05-31] MEDS: 0.9 % SODIUM CHLORIDE 10 ML SYRINGE IV SCH (06:19)
[2021-05-31 07:38] LABS: ALT/SGPT 39 U/L (<40); AST/SGOT 36 U/L (<40); Albumin 3.1 gm/dL (3.2-5.2); Albumin/Globulin Ratio 1.1 (1.0-2.3); Alkaline Phosphatase 111 U/L (39-117); Bilirubin,Direct < 0.2 mg/dL (0-0.3); Bilirubin,Total 0.3 mg/dL (0.1-1.0); Blood Urea Nitrogen 11 mg/dL (6-20); Calcium 9.1 mg/dL (8.6-10.4); Carbon Dioxide 26 mmol/L (22-30); Chloride 102 mmol/L (96-108); Globulin 2.9 gm/dL (2.2-3.7); Glomerular Filtration Rate 73; Glucose 96 mg/dL (70-105); Lactate Dehydrogenase 270 U/L (135-225); Phosphorous 2.5 mg/dL (2.5-4.5); Triglycerides 139 mg/dL (<150); Uric Acid 4.6 mg/dL (2.5-8.0)
[2021-05-31] MEDS: NICOTINE 14 MG PATCH TOPICAL SCH (09:04)
[2021-05-31] MEDS: HEPARIN 5,000 UNIT/ML VIAL SQ SCH (10:04)
--- NOTE | 2021-05-31 12:27 | General Surgery Progress Note ---
SUBJECTIVE Subjective Patient information: Note initiated : 05/31/21 at 12:24 pm Service Date, if different from initiated Date: [] Patient: Anshu Castillo 60 y/o M admitted on 05/28/21 for fever. He is feeling much better. is at the bedside. Urine culture grew both enterococcus and E. coli. Chief Complaint: [Urosepsis] Constitutional Vitals: Vital Signs Temp Pulse Resp BP Pulse Ox 98.4 F 45 L 20 112/66 95 05/31/21 11:15 05/31/21 11:15 05/31/21 11:15 05/31/21 11:15 05/31/21 11:15 Period Temp Pulse Resp BP Sys/Downing Pulse Ox Last 24 Hr 96.9 F-98.9 F 44-51 14-20 102-121/63-72 93-95 Intake and Output 05/30/21 05/31/21 05/31/21 21:59 05:59 13:59 Intake Total 990 100 100 Output Total 1575 800 Balance -585 -700 100 Weight 88.587 kg Intake & Output: Intake & Output 05/30/21 05/31/21 05/31/21 21:59 05:59 13:59 Intake Total 990 100 100 Output Total 1575 800 Balance -585 -700 100 Weight 88.587 kg Intake: IV 50 100 100 Ampicillin 1 gm In Sodium 50 100 100 Chloride 0.9% 50 ml @ 100 mls/ hr IV Q4H [facility] Rx#:[id number] Oral 940 Output: Urine Catheter Amount 725 325 Void Amount 850 475 Other: Meal Breakfast Percent of Meal Consumed 100% Feeding Ability Independent Urine Appearance Clear Urine Color Straw Urine Odor Normal A/P Narrative A/P Narrative: Doing much better. Had enterococcus and E. Coli infections. Will go home today on oral antibiotics. i will call the tomorrow to see when we can get him in for further treatment. He should follow up with me in the office in 1 week. Time Spent With Patient Time: Total time spent is greater than 50% in coordination of care (as documented) at patient's floor/unit and/or counseling patient: Total time spent with greater than 50% in coordination of care (as documented) at patient's floor/unit and/or counseling patient:: less than 15 minutes
== END 2021-05-31 12:40 | disposition home or self-care (01) | DRG 872 ==
LOC: ED 14:07 → MEDSUR 21:31
PROVIDERS: ADMIT Internal Medicine; ATTEND Internal Medicine